=== PATIENT | female | born 1990 | race Hispanic/Latino ===

== ENCOUNTER 2017-11-20 14:51 | Emergency (ER) | payer OTHER ==
[2017-11-20 15:14] VITALS: BMI 23.1
[2017-11-20] MEDS ORDERED: Sodium Chloride 0.9% 1,000 ML IV STA (15:28)
[2017-11-20 16:19] LABS: BASO % 0.4 % (0.0-2.0); EOS # 0.1 K/uL (0.0-0.7); EOS % 1.2 % (0.0-4.0); HEMOGLOBIN 14.5 g/dL (12.0-16.0); LYMPH # 1.6 K/uL (1.0-4.3); LYMPH % 17.1 % (20.0-40.0); MEAN CELL VOLUME 94.3 fl (81.0-99.0); MEAN CORPUSCULAR HEMOGLOBIN 31.9 pg (27.0-31.0); MEAN CORPUSCULAR HGB CONC 33.8 g/dL (33.0-37.0); MEAN PLATELET VOLUME 9.6 fl (7.2-11.7); MONO # 0.6 K/uL (0.0-0.8); MONO % 6.2 % (0.0-10.0); NEUT # 6.9 K/uL (1.8-7.0); NEUT % 75.1 % (50.0-75.0); RBC 4.55 Mil/uL (3.80-5.20); RED CELL DISTRIBUTION WIDTH 12.4 % (11.5-14.5); WHITE BLOOD COUNT 9.2 K/uL (4.8-10.8)
[2017-11-20 16:23] LABS: SQUAMOUS EPITHIAL < 1 /hpf (0-5); URINE BACTERIA OCC (<OCC); URINE BILIRUBIN NEGATIVE (NEGATIVE); URINE BLOOD MODERATE (NEGATIVE); URINE CLARITY SLIGHTY-CLOUDY (Clear); URINE COLOR YELLOW (YELLOW); URINE GLUCOSE (UA) NEG (Normal); URINE LEUKOCYTE ESTERASE LARGE Leu/uL (Negative); URINE PROTEIN 30 mg/dL (NEGATIVE); URINE UROBILINOGEN 0.2-1.0 mg/dL (0.2-1.0)
[2017-11-20 16:33] LABS: ALB/GLOB RATIO 1.2 (1.0-2.1); ALBUMIN 4.6 g/dL (3.5-5.0); ALT/SGPT 28 U/L (9-52); AST/SGOT 28 U/L (14-36); BLOOD UREA NITROGEN 12 mg/dl (7-17); CALCIUM 9.7 mg/dL (8.4-10.2); GFR AFRICAN-AMERICAN > 60; GFR NON-AFRICAN AMERICAN > 60
--- NOTE | 2017-11-20 17:30 | US ---
PROCEDURE: Ultrasound of the Kidneys HISTORY: L flank pain hx renal colic COMPARISON: None available. TECHNIQUE: Sonogram of the kidneys. FINDINGS: RIGHT KIDNEY: Measures: 11.0 x 3.7 x 4.6 cm. Focal upper pole caliectasis. Normal in size, contour and echogenicity. No stone, solid mass lesion or hydronephrosis visualized. LEFT KIDNEY: Measures: 12.1 x 4.5 x 5.0 cm. Nonobstructive mid/lower pole calculi measuring 0.4 and 0.6 cm, respectively. Normal in size, contour and echogenicity. No solid mass lesion or hydronephrosis visualized. OTHER FINDINGS: None. IMPRESSION: Nonobstructed left mid-lower pole calculi. Focal right upper pole caliectasis
[2017-11-20] MEDS ORDERED: cefTRIAXone (Rocephin) 1 gm Inj ONE (17:47)
--- NOTE | 2017-11-20 18:14 | ED PDOC ---
HPI: General Adult Time Seen by Provider: 11/20/17 15:18 Chief Complaint (Nursing): Back Pain Chief Complaint (Provider): flank pain, dysuria History Per: Patient History/Exam Limitations: no limitations Onset/Duration Of Symptoms: Days (3), Gradual Current Symptoms Are (Timing): Still Present Severity: Moderate Additional Complaint(s): 27yo female history renal colic 3 years ago w (?)lithotripsy now presents c/o dysuria since friday and flank pain starting today. Denies fever, weakness or nausea/vomiting. Pain not as severe as prior renal colic. No gross blood in urine LMP "" Past Medical History Reviewed: Historical Data, Nursing Documentation, Vital Signs Vital Signs: Last Vital Signs Temp 98.9 F 11/20/17 18:34 Pulse 70 11/20/17 18:34 Resp 16 11/20/17 18:34 BP 110/70 11/20/17 18:34 Pulse Ox 100 11/20/17 18:34 - Medical History PMH: Kidney Stones - Surgical History Other surgeries: no abdominal surgeries - Family History Family History: States: Unknown Family Hx - Social History Drugs: Denies - Home Medications Home Medications: Ambulatory Orders Medication Instructions Recorded Ciprofloxacin [Cipro] 500 mg PO BID #14 tab 11/20/17 Naproxen [Naprosyn] 500 mg PO BID PRN #14 tablet 11/20/17 traMADol [Ultram] 50 mg PO TID PRN #12 tab 11/20/17 - Allergies Allergies/Adverse Reactions: Allergies Allergy/AdvReac Type Severity Reaction Status Date / Time No Known Allergies Allergy Verified 11/20/17 15:11 Review of Systems ROS Statement: Except As Marked, All Systems Reviewed And Found Negative Constitutional: Negative for: Fever, Chills Cardiovascular: Negative for: Chest Pain Respiratory: Negative for: Cough Gastrointestinal: Positive for: Abdominal Pain, Other (flank pain). Negative for: Nausea, Vomiting Genitourinary Female: Positive for: Dysuria, Frequency. Negative for: Incontinence, Hematuria, Vaginal Discharge Musculoskeletal: Positive for: Back Pain. Negative for: Neck Pain, Shoulder Pain Skin: Negative for: Rash, Lesions Neurological: Negative for: Weakness, Numbness, Headache, Dizziness Psych: Negative for: Depression Physical Exam - Reviewed Nursing Documentation Reviewed: Yes Vital Signs Reviewed: Yes - Physical Exam Appears: Positive for: Well, Non-toxic, No Acute Distress Head Exam: Positive for: ATRAUMATIC, NORMAL INSPECTION, NORMOCEPHALIC Skin: Positive for: Normal Color, Warm, DRY Eye Exam: Positive for: EOMI, Normal appearance, PERRL ENT: Positive for: Normal ENT Inspection Neck: Positive for: Normal, Painless ROM Cardiovascular/Chest: Positive for: Regular Rate, Rhythm Respiratory: Positive for: CNT, Normal Breath Sounds Gastrointestinal/Abdominal: Positive for: Soft. Negative for: Tenderness, Guarding Back: Positive for: L CVA Tenderness (minimal) Extremity: Positive for: Normal ROM Neurologic/Psych: Positive for: Alert, Oriented - Laboratory Results Result Diagrams: 11/20/17 15:50 11/20/17 15:50 Urine POC: Negative Urine dip results: Positive for: Leukocyte Esterase, Blood - ECG O2 Sat by Pulse Oximetry: 99 Pulse Ox Interpretation: Normal Medical Decision Making Medical Decision Making: workup initiated for flank pain r/o pyelonephritis, renal colic vs other Preg neg UA +WBC, leuks, blood serum WBC normal and chem unremarkable Patient reports prior CT scans and would prefer to avoid radiation exposure, US renal thus obtained Accession No. 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 TECHNIQUE: Sonogram of the kidneys. FINDINGS: RIGHT KIDNEY: Measures: 11.0 x 3.7 x 4.6 cm. Focal upper pole caliectasis. Normal in size, contour and echogenicity. No stone, solid mass lesion or hydronephrosis visualized. LEFT KIDNEY: Measures: 12.1 x 4.5 x 5.0 cm. Nonobstructive mid/lower pole calculi measuring 0.4 and 0.6 cm, respectively. Normal in size, contour and echogenicity. No solid mass lesion or hydronephrosis visualized. OTHER FINDINGS: None. IMPRESSION: Nonobstructed left mid-lower pole calculi. Focal right upper pole caliectasis Urine culture sent Rocephin initiated in ED, to be sent home on Cipro and followup urine cultures 6p- feels better s/p toradol and IVF, minimal pain at the time. Discussed risks / benefits of CT scan prefers to wait, will return ER if any pain worsens. Without hydronephrosis unlikely large obstructing stone needing acute intervention. Disposition - Clinical Impression Clinical Impression: Pyelonephritis - Patient ED Disposition Is Patient to be Admitted: No Counseled Patient/Family Regarding: Studies Performed, Diagnosis, Need For Followup, Rx Given - Disposition Referrals: Juan Antonio Adame MD [Medical Doctor] - Disposition: Routine/Home Disposition Time: 17:40 Condition: STABLE Additional Instructions: Followup urine cultures in 2-3 days. Return to ER immediately for worse pain, fever, weakness or any concern. Take antibiotics as directed. Do not exercise while taking this medication as it can cause tendon damage. Use naprosyn for pain, tramadol for breakthrough pain. Drink plenty of fluids. [place], thank you for letting us take care of you today. Your provider was Dr Chaz Hankins and you were treated for FLANK PAIN. The emergency medical care you received today was directed at your acute symptoms. If you were prescribed any medication, please fill it and take as directed. It may take several days for your symptoms to resolve. Return to the Emergency Department if your symptoms worsen, do not improve, or if you have any other problems. Please contact your doctor or call one of the physicians/clinics you have been referred to that are listed on the Patient Visit Information form that is included in your discharge packet. Bring any paperwork you were given at discharge with you along with any medications you are taking to your follow up visit. Our treatment cannot replace ongoing medical care by a primary care provider outside of the emergency department. Thank you for allowing the [facility] team to be part of your care today. If you had an X-Ray or CT scan: A Radiologist will review the ED reading if any change in treatment is needed we will contact you. If you had a blood, urine, or wound culture: It will take several days for the results, if any change in treatment is needed we will contact you. Prescriptions: Ciprofloxacin [Cipro] 500 mg PO BID #14 tab Naproxen [Naprosyn] 500 mg PO BID PRN #14 tablet PRN Reason: Pain, Moderate (4-7) traMADol [Ultram] 50 mg PO TID PRN #12 tab PRN Reason: Pain, Moderate (4-7) Instructions: Kidney Infection (DC) Forms: [employer] (Japanese)
[2017-11-20 18:35] VITALS: BP 110/70; PULSE 70; RESP 16; TEMP 98.9
[2017-11-20 18:51] VITALS: O2SAT 99
== END 2017-11-20 18:34 | disposition home or self-care (01) ==
LOC: H.ER 14:51
DX: N10 Acute pyelonephritis (principal)
CPT/HCPCS: 76770; 80053; 81003; 81025; 85025; 87086; 87181; 96361; 96374; 96375; 99283; J0696; J1885; J7030